=== PATIENT | female | born 1995 | race Caucasian/White ===

== ENCOUNTER 2019-09-17 14:21 | Emergency (ER) | payer SELFPAY ==
[~2019-09-17] VITALS: Ht 172.7 cm; Wt 118.1 kg
[2019-09-17 14:56] VITALS: BP 168/83
--- NOTE | 2019-09-17 15:05 | PHYS DOC ---
General Adult EDM: Chief Complaint: FEVER HPI: HPI: The history was obtained from the patient. Patient is a 24-year-old female with PMH asthma, tobacco abuse who presents with a chief complaint of fever and chills. Patient states over the past 3 days she has had fevers and chills. She notes temperature 101.0 2 days ago. She has been taking Tylenol as needed. She also notes associated loose stool. She states she has been able to tolerate fluids but has had a decrease in appetite overall. She does note that people at work have been tested and were positive for srinivasan virus. She does note a mild dry cough. She does note very mild increased shortness of breath with exertion. She does have a history of tobacco abuse and asthma. She does not take any medication daily for her asthma. She does state that she takes Latuda and lithium daily. She denies any syncope or chest pain. Does note some generalized fatigue. Denies any neck pain or stiffness. No other complaints. Review of Systems: Review of Systems: Constitutional: Positive for fevers, chills, fatigue, malaise Eyes: Denies change in visual acuity. [] HENT: Positive for sore throat Respiratory: Positive for cough, shortness of breath Cardiovascular: Denies chest pain or edema. [] GI: Positive for diarrhea : Denies dysuria. [] Musculoskeletal: Denies back pain or joint pain. [] Integument: Denies rash. [] Neurologic: Denies headache, focal weakness or sensory changes. [] Endocrine: Denies polyuria or polydipsia. [] Lymphatic: Denies swollen glands. [] Psychiatric: Denies depression or anxiety. [] Heart Score: Risk Factors: Risk Factors: DM, Current or recent (<one month) smoker, HTN, HLP, family history of CAD, obesity. Risk Scores: Score 0 - 3: 2.5% MACE over next 6 weeks - Discharge Home Score 4 - 6: 20.3% MACE over next 6 weeks - Admit for Clinical Observation Score 7 - 10: 72.7% MACE over next 6 weeks - Early Invasive Strategies Allergies: Allergies: Allergies Coded Allergies Type Severity Reaction Last Updated Verified No Known Drug Allergies 09/17/19 No Physical Exam: PE: Constitutional: Well developed, well nourished, no acute distress, non-toxic appearance. [] HENT: Normocephalic, atraumatic, bilateral external ears normal, oropharynx moist, no oral exudates, nose normal. [] Eyes: PERRLA, EOMI, conjunctiva normal, no discharge. [] Neck: Normal range of motion, no tenderness, supple, no stridor. [] Cardiovascular:Heart rate regular rhythm, no murmur [] Lungs & Thorax: Bilateral breath sounds clear to auscultation [] Abdomen: soft, no tenderness, no masses, no pulsatile masses. [] Skin: Warm, dry, no erythema, no rash. [] Back: No tenderness, no CVA tenderness. [] Extremities: No tenderness, no cyanosis, no clubbing, ROM intact, no edema. [] Neurologic: Alert and oriented X 3, normal motor function, normal sensory function, no focal deficits noted. [] Psychologic: Affect normal, judgement normal, mood normal. [] EKG: EKG: [] Radiology/Procedures: Radiology/Procedures: [facility] [address] [place], [place] [id number] IMAGING REPORT Signed PATIENT: AMANDA CHOUDHARY LACCOUNT: [id number] : 1995 LOCATION: ER AGE: 24 SEX: F EXAM STATUS: REG ER ORD. PHYSICIAN: DANIS PARK DO REASON: cough with fever PROCEDURE: CHEST AP ONLY CHEST AP ONLY Clinical Indication: Reason: cough with fever. Comparison: None. Findings: The cardiomediastinal silhouette is normal. Lungs are clear. There is no pneumothorax. No pleural effusion is appreciated. No acute bone abnormality. IMPRESSION: No acute cardiopulmonary process. Electronically signed by: Deyvi Toscano MD (09/17/2019 3:59 PM) [id number] DICTATED and SIGNED BY: DEYVI TOSCANO MD DATE: 09/17/19 1559 Course & Med Decision Making: Course & Med Decision Making Patient is a well-appearing 24-year-old female who presents with a complaint of fevers and chills with known coronavirus exposure. There is a vital signs unremarkable. 99% on room air. Not tachycardic. Afebrile. Core virus sample was obtained. Patient will be notified of results in the next few days. Chest x-ray nonacute. On repeat examination patient remains nontoxic-appearing she has tolerated p.o. in emergency department. Overall he feels appropriate for outpatient management. She was instructed follow-up with her primary care physician. Return cautions were discussed and understood. She was given quarantine instructions as well. Patient is agreeable to this plan. Stable for discharge home. Dragon Disclaimer: Dragles Disclaimer: This electronic medical record was generated, in whole or in part, using a voice recognition dictation system. Departure Departure Impression: Primary Impression: Fever and chills Additional Impressions: Sore throat Cough Tobacco abuse Disposition: HOME, SELF-CARE Condition: GOOD Referrals: NO PCP (PCP) Patient Instructions: Upper Respiratory Infection, Adult Additional Instructions: COVID-19 FREQUENTLY ASKED QUESTIONS What is coronavirus disease 2019 (COVID-19)? It is a respiratory illness with symptoms such as a cough, fever, and difficulty breathing. You can protect yourself by washing your hands frequently, not touching your face or rubbing your eyes, and avoiding close contact (3 - 6 feet) with people who are unwell. Coronavirus disease spreads primarily through contact with an infected person when they cough or sneeze. It also spreads when a person touches a surface or object that has the virus on it, then touches their eyes, nose, or mouth. Why didnt I get tested today for the srinivasan virus? Testing at all [facility] hospitals is currently very limited and only available to high risk individuals, especially those who are sick enough to be admitted to the hospital. Most patients will not be tested, even if we suspect they are sick from the srinivasan virus. Regardless if you are tested or not, if you are sick, please stay home and remain apart from others for at least 14 days. If you still want to be tested, you have several options: You can call your primary care physician who may be able to order the test for you if you meet specific criteria established by the CDC. Call the [facility] at for a telephone screening to see if you are eligible to be tested. Go to www.CoronaVirus.[place].gov for more information or call the [facility] at [phone]) 2-RNG-HBL. What can I do at home to make me feel better? There is no cure for this virus. Those that become ill are often sick for 2-3 weeks. If you are sick, stay at home and rest. Drink plenty of fluids. Take acetaminophen (Tylenol) for fever and muscle aches. Continue to take your daily prescribed medication. Isolate yourself from others living in your home until you start to feel better. Reach out to your primary care provider or [facility] clinic for guidance while you are ill. New treatments, along with vaccines, are being researched but nothing is currently available. Experimental treatments, if they become available, will be reserved for the sickest patients. What is quarantine and why is it important? Quarantine is recommended for anyone who is ill with symptoms such as fever and cough. This means staying at home and avoiding contact with others for at least 14 days, until you get better. Since testing is not widely available, it is reasonable to assume that your cough, fever, muscle aches, and fatigue are due to a viral infection. So, play it safe and remain at home and practice social distancing (remain at least 6 feet from others), wash your hands regularly, use facial tissue to cover your mouth and nose when you cough or sneeze, and throw it away immediately. What should I do if I start feeling worse? If your symptoms worsen, you should either call your doctor or nearby health clinic, go to the closest emergency department or CALL 911. Emergency warning signs may include: Trouble breathing. Persistent pain or pressure in your chest. New confusion or difficulty to arouse. Bluish lips or face. Any symptoms that you feel are severe or concerning. What if my sickness is due to something else? The majority of people who become sick from the srinivasan virus develop fever, muscle aches, cough, shortness of breath and fatigue within a few days of being exposed to the virus. Some people experience nausea and diarrhea a few days ahead of time. If you are worried about how you feel or you believe your symptoms are due to something else , call your primary care physician or go to the closest emergency department. How do I prevent the spread of germs when caring for someone who is sick? Have the ill person stay in one room away from others. If possible, have them use a separate bathroom and avoid sharing personal household items like dishes, towels, bedding, etc. If a facemask is available, have them wear it when they are around others. You should also wear a facemask, if you have one, when you are in the room with them. Wash your hands often with soap and water for at least 20 seconds or use a hand steel engraver that contains at least 60% alcohol each time after interacting with the sick person. If you use a hand steel engraver, cover all surfaces of your hands and rub them together until they dry. Avoid touching your eyes, nose and mouth and clean all surfaces regularly that are often touched (counters, tabletops and doorknobs). Wash laundry thoroughly. Stay Safe. Stay Informed. Stay Well. [facility] [address] [place] [address] [facility] [address] [place] [address] [facility] [address] [facility] [place] [address] [facility] [address] [place] [address] [facility] [address] [place] [address] [facility] [address] [place] [address] [facility] [address] [place] [address] [facility] [facility] [address] [place] [address] [facility] [address] [place] [address] [facility] [address] [place] [address] Justicifation of Admission Dx: Justifications for Admission: Justification of Admission Dx: N/A DANIS PARK DO Sep 17, 2019 15:05
--- NOTE | 2019-09-17 16:02 | RAD ---
CHEST AP ONLY Clinical Indication: Reason: cough with fever. Comparison: None. Findings: The cardiomediastinal silhouette is normal. Lungs are clear. There is no pneumothorax. No pleural effusion is appreciated. No acute bone abnormality. IMPRESSION: No acute cardiopulmonary process. Electronically signed by: Deyvi Toscano MD (09/17/2019 3:59 PM) [id number]
--- NOTE | 2019-09-18 15:00 | NUR ---
IP: I attempted to call the number listed for the patient and it is not a functioning number. I called the number of her contact listed and left a message to have pt return my call.
--- NOTE | 2019-09-18 16:04 | NUR ---
IP: Pt returned call and I gave her results of her COVID + test. Pt verbalized understanding. Informed pt of need to for her and household members to self quarantine for 14 days and to expect a call from the health department. Pt again verbalized understanding.
== END 2019-09-17 17:00 | disposition home or self-care (01) ==
LOC: ER 14:21
DX: U07.1 COVID-19 (principal); R50.9 Fever, unspecified; J02.9 Acute pharyngitis, unspecified; R05 Cough; F17.200 Nicotine dependence, unspecified, uncomplicated; R19.7 Diarrhea, unspecified
CPT/HCPCS: 71045; 99284; C9803; U0003